=== PATIENT | female | born 1965 ===

== ENCOUNTER 2021-06-30 11:24 | Outpatient (CLI) | payer OTHER | END 2021-06-30 11:28 | disposition home or self-care (01) | LOC: MAMO-SONO 11:24 | DX: Z12.31 Encounter for screening mammogram for malignant neoplasm of breast (principal); N63.0 Unspecified lump in unspecified breast; N60.19 Diffuse cystic mastopathy of unspecified breast; N60.29 Fibroadenosis of unspecified breast ==